=== PATIENT | male | born 1960 | race Caucasian/White ===

== ENCOUNTER 2020-01-10 13:35 | Outpatient (CLI) | payer OTHER ==
--- NOTE | 2020-01-10 14:48 | RAD ---
TWO VIEW CHEST: 01/10/20 HISTORY: Pneumonia. No comparison. No evidence of infiltrate or consolidation. No evidence of significant effusion. Heart and mediastinu m unremarkable. Vasculature within normal range. IMPRESSION: No acute infiltrate identified. POS: [facility]
== END 2020-01-10 13:36 | disposition home or self-care (01) ==
LOC: BICRAD 13:35
DX: J18.9 Pneumonia, unspecified organism (principal)
CPT/HCPCS: 71046